=== PATIENT | male | born 1960 | race Two or more races ===

== ENCOUNTER 2021-02-22 09:51 | Inpatient (IN) | payer OTHER ==
[2021-02-22 10:04] VITALS: BMI 24.4
[2021-02-22] MEDS ORDERED: MAGNESIUM CITRATE 300 ML BOTTLE PO PRN (10:28)
[2021-02-22] MEDS ORDERED: MAG HYDROX/AL HYDROX/SIMETH 30 ML UNIT-DOSE CUP PO PRN (10:28)
[2021-02-22] MEDS ORDERED: ONDANSETRON *ODT* 4 MG TABLET SL PRN (10:28)
[2021-02-22] MEDS ORDERED: MAGNESIUM HYDROX 2400MG/30ML ORAL SUSPENSION 30 ML CUP PO PRN (10:28)
[2021-02-22] MEDS ORDERED: ACETAMINOPHEN 325 MG TABLET (FP) PO PRN (10:28)
[2021-02-22] MEDS ORDERED: MENTHOL/PHENOL 1 EACH UD MM PRN (10:28)
[2021-02-22] MEDS: IBUPROFEN 400 MG TABLET (FP) PO PRN (11:55)
[2021-02-22] MEDS: diazePAM 5 MG TABLET PO SCH ×3 (11:57→22:11)
[2021-02-22] MEDS: BISMUTH SUBSALICYLATE 262 MG/15 ML BTL PO PRN (12:00)
[2021-02-22] MEDS: PRENATAL VITAMINS W/ FOLIC ACID TABLET (FP) PO SCH (12:06)
[2021-02-22] MEDS: hydrOXYzine PAMOATE 25 MG CAPSULE (FP) PO SCH ×3 (13:59→22:13)
[2021-02-22 14:34] LABS: HEMOGLOBIN 12.7 GM/dL (11.7-16.9); MCH 33.2 pg (25.7-33.7); MCHC 34.3 g/dl (32.0-35.9); MEAN CELL VOLUME 96.7 fl (80-96); MEAN PLT VOLUME 7.3 fl (7.5-11.1); PLATELET COUNT 339 10^3/uL (134-434); RBC 3.83 M/mm3 (4.00-5.60); RDW 16.2 % (11.9-15.9); WHITE BLOOD COUNT 6.4 K/mm3 (4.0-10.0)
[2021-02-22 14:40] LABS: CALCIUM 9.3 mg/dL (8.5-10.1)
[2021-02-22 14:41] LABS: ALBUMIN 3.8 g/dl (3.4-5.0); BLOOD UREA NITROGEN 10.4 mg/dL (7-18)
[2021-02-22 14:44] LABS: CREATININE 0.8 mg/dL (0.55-1.3)
[2021-02-22 14:46] LABS: BILIRUBIN,TOTAL 0.2 mg/dL (0.2-1); TOT PROT 6.9 g/dl (6.4-8.2)
[2021-02-22] MEDS ORDERED: MELATONIN 5 MG TABLETS PO SCH (22:00)
[2021-02-22] MEDS: THIAMINE HCL 100 MG TABLET (FP) PO SCH (22:09)
[2021-02-22] MEDS: MIRTAZAPINE 15 MG TABLET (FP) PO SCH (22:10)
[2021-02-23] MEDS: diazePAM 5 MG TABLET PO SCH ×4 (05:36→22:06)
[2021-02-23] MEDS: hydrOXYzine PAMOATE 25 MG CAPSULE (FP) PO SCH ×5 (05:36→22:06)
[2021-02-23] MEDS: PRENATAL VITAMINS W/ FOLIC ACID TABLET (FP) PO SCH (10:20)
[2021-02-23] MEDS: METHOCARBAMOL 500 MG TABLET PO PRN (10:21)
[2021-02-23] MEDS: MIRTAZAPINE 15 MG TABLET (FP) PO SCH (22:06)
[2021-02-23] MEDS: THIAMINE HCL 100 MG TABLET (FP) PO SCH (22:07)
[2021-02-23] MEDS: IBUPROFEN 400 MG TABLET (FP) PO PRN (22:09)
[2021-02-24] MEDS: hydrOXYzine PAMOATE 25 MG CAPSULE (FP) PO SCH ×5 (05:25→22:20)
[2021-02-24] MEDS: diazePAM 5 MG TABLET PO SCH ×3 (05:25→22:23)
[2021-02-24] MEDS: ACETAMINOPHEN 325 MG TABLET (FP) PO PRN ×2 (05:26→15:49)
[2021-02-24] MEDS: PRENATAL VITAMINS W/ FOLIC ACID TABLET (FP) PO SCH (10:18)
[2021-02-24] MEDS: METHOCARBAMOL 500 MG TABLET PO PRN ×2 (10:19→22:21)
[2021-02-24] MEDS: diazePAM 5 MG TABLET PO PRN (10:19)
[2021-02-24] MEDS ORDERED: IBUPROFEN 600 MG TABLET (FP) PO PRN (13:01)
[2021-02-24] MEDS: ATENOLOL 25 MG TABLET (FP) PO SCH (14:01)
[2021-02-24] MEDS: amLODIPine BESYLATE 5 MG TABLET (FP) PO SCH (14:01)
[2021-02-24] MEDS: THIAMINE HCL 100 MG TABLET (FP) PO SCH (22:20)
[2021-02-24] MEDS: MIRTAZAPINE 15 MG TABLET (FP) PO SCH (22:21)
[2021-02-24] MEDS: BISMUTH SUBSALICYLATE 262 MG/15 ML BTL PO PRN (22:25)
[2021-02-25] MEDS: diazePAM 5 MG TABLET PO PRN ×2 (02:54→10:15)
[2021-02-25] MEDS: hydrOXYzine PAMOATE 25 MG CAPSULE (FP) PO SCH ×5 (05:46→22:06)
[2021-02-25] MEDS: diazePAM 5 MG TABLET PO SCH ×2 (05:46→17:48)
[2021-02-25] MEDS: METHOCARBAMOL 500 MG TABLET PO PRN ×2 (10:43→22:06)
[2021-02-25] MEDS: amLODIPine BESYLATE 5 MG TABLET (FP) PO SCH (10:43)
[2021-02-25] MEDS: PRENATAL VITAMINS W/ FOLIC ACID TABLET (FP) PO SCH (10:43)
[2021-02-25] MEDS: ATENOLOL 25 MG TABLET (FP) PO SCH (10:44)
[2021-02-25] MEDS: MIRTAZAPINE 15 MG TABLET (FP) PO SCH (22:05)
[2021-02-25] MEDS: THIAMINE HCL 100 MG TABLET (FP) PO SCH (22:06)
[2021-02-26] MEDS ORDERED: diazePAM 5 MG TABLET PO ONE (06:00)
[2021-02-26] MEDS: hydrOXYzine PAMOATE 25 MG CAPSULE (FP) PO SCH (06:05)
[2021-02-26 09:50] VITALS: BP 123/77; PULSE 64; TEMP 97.3
[2021-02-26] MEDS: ATENOLOL 25 MG TABLET (FP) PO SCH (10:12)
[2021-02-26] MEDS: amLODIPine BESYLATE 5 MG TABLET (FP) PO SCH (10:12)
[2021-02-26] MEDS: PRENATAL VITAMINS W/ FOLIC ACID TABLET (FP) PO SCH (10:13)
== END 2021-02-26 11:17 | disposition home or self-care (01) | DRG 897 ==
LOC: YASAS 09:51 → Y6N 10:47
PROVIDERS: ADMIT Allergy & Immunology; ATTEND Allergy & Immunology
PROC: HZ2ZZZZ Detoxification Services for Substance Abuse Treatment (ICD-10-PCS; principal; 2021-02-22)
DX: F10.230 Alcohol dependence with withdrawal, uncomplicated (principal); F19.282 Other psychoactive substance dependence with psychoactive substance-induced sleep disorder; F12.20 Cannabis dependence, uncomplicated; F19.24 Other psychoactive substance dependence with psychoactive substance-induced mood disorder; F34.1 Dysthymic disorder; F41.9 Anxiety disorder, unspecified; F32.A Depression, unspecified; I10 Essential (primary) hypertension; R00.1 Bradycardia, unspecified; Z87.891 Personal history of nicotine dependence; Z87.19 Personal history of other diseases of the digestive system; Z98.890 Other specified postprocedural states
CPT/HCPCS: 36415; 80053; 85027; 86780; 93005; 93010; C9803; U0003; U0005